=== PATIENT | male | born 1960 | race African-American/Black ===

== ENCOUNTER 2019-11-28 10:11 | Inpatient (IN) | payer OTHER ==
[~2019-11-28] VITALS: Ht 182.9 cm; Wt 117.9 kg
[~2019-11-28 10:11] MED LIST: ACCUPRIL40 MG PO; AMMONIUM LACTA226 GM TOP; CEPHALEXIN 500500 M3 PO; CLEOCIN HCL150 MG PO; HYDROCODONE-AP1 EAC6 PO; NOHOMEMEDICATIONS; PRINIVIL20 MG PO; TRAMADOL 50 MG50 MG PO; TRANDATE 200 M200 M1 PO; XARELTO20 MG PO
[2019-11-28 10:13] VITALS: BP 216/109
[2019-11-28 11:00] LABS: BASOPHILS 0.3 % (0.0-2.0); HEMATOCRIT 41.6 % (42.0-52.0); HEMOGLOBIN 13.4 gm/dL (14.0-18.0); LYMPHOCYTES 24.8 % (24.0-44.0); MCH 27.4 pg (26.0-34.0); MCHC 32.1 g/dL (28.0-37.0); MCV 85.4 fL (80.0-100.0); MONOCYTES 9.4 % (1.0-8.0); PLATELET COUNT 241 thou/uL (150-400); POLYS 64.5 % (36.0-66.0); RBC 4.87 mil/uL (4.50-6.00); RDW 14.7 % (10.5-14.5); WBC 7.8 thou/uL (4.0-11.0)
[2019-11-28 11:08] LABS: CALCIUM 8.6 mg/dL (8.5-10.1); CREATININE 1.2 mg/dL (0.7-1.3); POTASSIUM 3.8 mmol/L (3.5-5.1)
[2019-11-28 11:14] LABS: ALBUMIN 3.5 g/dL (3.4-5.0); TOTAL BILIRUBIN 0.5 mg/dL (0.2-1.0); TOTAL PROTEIN 8.6 g/dL (6.4-8.2)
[2019-11-28 13:25] LABS: URINE BILIRUBIN NEGATIVE (Negative); URINE BLOOD NEGATIVE (Negative); URINE CLARITY CLEAR; URINE COLOR YELLOW; URINE GLUCOSE-RANDOM* NEGATIVE (Negative); URINE KETONES NEGATIVE (Negative); URINE LEUKOCYTES-REFLEX NEGATIVE (Negative); URINE NITRITE-REFLEX NEGATIVE (Negative); URINE PROTEIN (DIPSTICK) NEGATIVE (Negative); URINE SPECIFIC GRAVITY 1.015 (1.005-1.035); URINE UROBILINOGEN 0.2 E.U./dl (0.2-1.0)
[2019-11-28 15:06] VITALS: BP 189/102
[2019-11-28 15:45] VITALS: BP 178/95
[2019-11-28 17:30] VITALS: BP 183/81
--- NOTE | 2019-11-28 19:09 | NUR ---
Pt admitted to floor per cart at 1600. Admission hx,assessment and care plan completed.home med sent to pharmacy.Blood sugar was 110.No insulin needed. Admission nurse to take wound picture later this shift.Dinner given. No verbal c/o.Will continue to monitor.
--- NOTE | 2019-11-28 19:59 | NUR ---
WOUND CARE PICTURES DONE, WOUND CARE DONE TO BILATERAL LEGS. C/O MILD PAIN WITH WOUND CARE, MODERATE AMT. OF LIGHT BROWN DRAINAGE, FOUL SMELLING. DOCUMENTED PERSONAL BELONGINGS. SEPSIS SCREENING DONE. WILL REPORT TO SHENG/ROZINA.
[2019-11-28 23:29] VITALS: BP 138/74
--- NOTE | 2019-11-29 03:58 | NUR ---
ASSUMED PT CARE AROUND 1929. IV REPLACED TO LFA PER PT REQUEST . VSS. NO S/S ACUTE DISTRESS NOTED OR REPORTED AT THIS TIME. WILL CONT TO MONITOR FOR ANY CHANGES IN CONDITION.
[2019-11-29 05:51] VITALS: BP 133/76
[2019-11-29 08:16] VITALS: BP 143/82
--- NOTE | 2019-11-29 14:27 | NUR ---
WOUND CONSULT; ASSESSMENT COMPLETED PRIOR TO ORDERED DRESSING CHANGE. CLEANSED BILATERAL LE'S WITH HIBICLENS DILUTED IN WATER. THOUROUGHLY WASHED LE'S. REMOVED COPIOUS SCALLY/CRUSTED SKIN. THE PATIENT NEEDS PODIATRY. THE PATIENT TOLERATED WELL. DISCUSSED WITH ROZINA
[2019-11-29 16:21] VITALS: BP 184/92
--- NOTE | 2019-11-29 16:53 | NUR ---
PT IS AOX4, ELEVATED BP THIS AFTERNOON 185/92, 62 HR. GAVE PRN BP MEDICATION. PT RECEIVED WOUND CARE FOR BLE BY WOUND CARE NURSE. PT SHOWS NO SIGNS OF DISTRESS. IV PATENT IN R FA, ANTIBIOTIC THERAPY COMPLETED. CALL LIGHT IN REACH. WILL CONTINUE TO MONITOR.
[2019-11-29 20:10] VITALS: BP 161/77
--- NOTE | 2019-11-30 06:39 | NUR ---
Assumed pt care at 1900. Pt's A/OX4,VSS. Denies pain on assessment though grimaces when repositioning self in bed. Continent of B&B,voiding per urinal at night. Pt hasn't gotten OOB this shift. BLE dsgs C/D/I. IV patent on RFA infusing Abts w/o any problems. Fall precautions in place, calls approp for help. Resting quietly w/o any distress,will continue to monitor pt.
[2019-11-30 09:10] VITALS: BP 179/101
[2019-11-30 10:14] VITALS: BP 172/78
--- NOTE | 2019-11-30 12:26 | HC ---
[facility] [place] [address] CONSULTATION Name: ALF YUAN Room #: 461- ADM IN M.R.#: [id number] Admission: 11/28/19 Attend Phys: Amy Franklin Discharge: Date of : 62 Report #: [id number] THIS REPORT FOR: cc: KEZIA - Verónica family physician/PCP KEZIA - Verónica family physician/PCP Leon Infante MD ~ CC: KEZIA physician/PCP Amy Franklin DATE OF SERVICE: 11/29/2019 WOUND CARE CONSULTATION REQUESTING PHYSICIAN: Dr. Franklin. CHIEF COMPLAINT: Bilateral lower extremity wounds. HISTORY OF PRESENT ILLNESS: This is a 59-year-old black male who states he has had chronic lower extremity edema and recurrent wounds for several months. The patient states he normally was getting care at [facility]; however, has not seen a wound care physician for several months. The patient does complain of mild pain associated with the swelling and superficial ulcerations. The patient was admitted through the Emergency Department yesterday evening for bilateral lower extremity cellulitis. We have been asked to follow the patient for the swelling and superficial wounds. The patient denies any other wounds besides what is on his legs. The patient himself is somewhat of a poor historian and appears to be extremely noncompliant. The patient also was noted in the Emergency Department to have uncontrolled hypertension. The patient denies chest pain, numbness, tingling and weakness in arms or legs. PAST MEDICAL HISTORY: Significant for hypertension, venous stasis with superficial ulcerations and stasis dermatitis and edema, diabetes, previous history of DVT with pulmonary embolus. CURRENT MEDICATIONS: Include labetalol, quinapril. DRUG ALLERGIES: None. SOCIAL HISTORY: The patient denies tobacco or alcohol use. FAMILY HISTORY: Not pertinent to current medical condition. REVIEW OF SYSTEMS: CONSTITUTIONAL: The patient denies fevers or chills. NEUROLOGIC: The patient denies associated numbness, tingling or weakness in arms or legs. Denies headache. [facility] [address] [place] [address] CONSULTATION Name: ALF YUAN Room #: 461-[facility] IN .R.#: [id number] Admission: 11/28/19 Attend Phys: Amy Franklin Discharge: Date of : 62 Report #: [id number] EYES: No complaints. ENT: No complaints. CARDIAC: The patient has chronic lower extremity edema with stasis dermatitis, but denies chest pain or palpitation. RESPIRATORY: The patient denies shortness of breath, cough or wheezes. GASTROINTESTINAL: The patient denies nausea, vomiting, and abdominal pain. GENITOURINARY: The patient denies urgency or frequency. MUSCULOSKELETAL: No complaints. SKIN: The patient has significant stasis dermatitis, bilateral lower extremities with hyperkeratosis and multiple superficial ulcerations. PHYSICAL EXAMINATION: VITAL SIGNS: Temperature 36.8, pulse 81, respirations 18, BP 179/101. GENERAL: This is an alert and oriented x 3, pleasant black male who has extremely flat affect. HEENT: Normocephalic, atraumatic. Mucous membranes are dry. Pupils are round. Sclerae white. NECK: Supple, nontender, without JVD. LUNGS: Clear. HEART: Regular. ABDOMEN: Soft, nontender. EXTREMITIES: The patient moves all extremities without difficulty. The patient has significant hyperkeratosis of bilateral lower extremities with multiple superficial ulcerations in bilateral lower extremities with increased erythema, warmth and tenderness. There is 3+ edema bilateral lower extremities. Bilateral heels are intact. Extreme hyperkeratosis of bilateral feet with poor hygiene. NEUROLOGIC: Cranial nerves 2-12 grossly intact. Motor and sensory grossly intact. LABORATORY DATA: White count 7.8, hemoglobin 13.4, albumin 3.5. IMPRESSION: 1. Chronic venous stasis dermatitis with multiple superficial venous leg ulcers and underlying cellulitis. 2. Hyperkeratosis of bilateral feet. 3. Hypertension. 4. Diabetes mellitus. 5. Generalized debility. PLAN: At this time, wound care nurse has been asked to come and clean the patient's legs and feet extensively with soap and water to remove the hyperkeratosis. We will start with AmLactin to the bilateral lower extremities daily. We use Kerlix and Rojelio from toes to knee for control of edema. We will cover the extremities after the AmLactin with Xeroform [place] [address] CONSULTATION Name: ALF YUAN Room #: 461-P [facility] IN M.R.#: [id number] Admission: 11/28/19 Attend Phys: Amy Franklin Discharge: Date of : 62 Report #: [id number] continue all other current medications. We will continue to follow the patient. I appreciate ability to consult. <ELECTRONICALLY SIGNED> By: Leon Infante MD 11/30/19 1226 [id number] [id number] Leon Infante MD /nt
--- NOTE | 2019-11-30 12:34 | NUR ---
ASSUMED CARE AT 0700. PT IS ALERT AND ORIENTED. NO COMPLAINTS AT THIS TIME. HIS BP IS HIGH, MEDICATION GIVEN. OTHERWISE VSSA/RA. TOLERATING PO AND VOIDING WITHOUT ISSUE. BLOOD SUGARS MONITORED PIV INFUSING WITHOUT COMPLICATIONS. WOUND RN CHANGED HIS DRESSINGS TODAY. THEY ARE C/D/I. PT/OT WORKING WITH PT. CALL LIGHT IN REACH. WILL CONTINUE TO MONITOR
--- NOTE | 2019-11-30 16:11 | NUR ---
PT ADMITTED RELATED TO BILAT LE CELLULITIS. CM REVIEWED CHART AND SPOKE WITH CARE TEAM. CM CALLED AND SPOKE WITH PT THIS DAY HE IS A&O X4. CM ROLE INTRODUCED. PT INDICATED HE HAD BEEN STAYING WITH A FRIEND THEN HIS AUNT, THEN AT [facility]CUE [facility]ION AT [address] [place]. PT INDICATED HE HAD BEEN TO [place] FOR WOUND CARE IN THE PAST AND HAD A NUMBER FOR A WOUND CARE PERSON THERE THAT HE CALLS OCCASIONALLY FOR ASSISANCE. PT INDICATED HE HAS NO INSURANCE AND NO PCP. PT IS FAMILIAR WITH GOING FOR CARES AT [place] AND IS AWARE OF CLINIC AT [facility]. PT INDICATED IT WOULD BE HELPFUL TO HAVE HIS MEDS VOUCHERED UPON DC. PT WOULD NEED SUPPLIES PROVIDED TO BE ABLE TO ADDRESS WOUNDS HIMSELF UPON DC. PT INDICATED HE ANTICPATES GOING TO RESCUE OR TO HIS FRIENDS HOUSE UPON DC. PT INIDCATED HE TAKES THE BUS AND WOULD BE FINE TO DO SO UPON DC. CM TO PROVIDE [facility] [facility] PACKET FOR ADDITIONAL FOLLOW UP CARE OPTIONS UPON DC AND WORK TO VOUCHER ANY NEEDED MEDICATIONS.
[2019-11-30 16:54] VITALS: BP 169/89
[2019-11-30 20:41] VITALS: BP 154/84
--- NOTE | 2019-12-01 02:57 | NUR ---
PATIENT ALERT AND ORIENTED X4. UP IN CHAIR AT BEGINNING OF SHIFT AND DID NOT RETURN TO THE BED UNTIL APPROX. 0245. IV PATENT FOR IVPB'S. COOPERATIVE WITH CARE. BILATERAL LOWER EXTREMETIES WRAPPED PER WCT AND ARE D/I. PATIENT KEEPS LEGS ELEVATED WHILE IN JOAQUIN CHAIR. BS AT HS WAS 117, INSULIN GIVEN PER S/S. PATIENT HAS FLAT AFFECT MOST OF THE TIME, HOWEVER, HE WILL LAUGH A LITTLE AT THE TV PROGRAMS AND ANSWERS APPROPRIATELY BUT SHORT. MEDICATED X1 FOR PAIN TO LEGS AT TIME OF NOTE. WILL MONITOR.
[2019-12-01 04:16] VITALS: BP 144/86
[2019-12-01 05:55] LABS: ALBUMIN 2.5 g/dL (3.4-5.0); CALCIUM 7.8 mg/dL (8.5-10.1); CREATININE 1.3 mg/dL (0.7-1.3); PHOSPHORUS 3.5 mg/dL (2.5-4.9); POTASSIUM 3.8 mmol/L (3.5-5.1)
[2019-12-01 07:15] VITALS: BP 179/88
[2019-12-01 15:02] VITALS: BP 178/109
[2019-12-01 20:00] VITALS: BP 171/101
[2019-12-01 20:13] VITALS: BP 171/101
--- NOTE | 2019-12-01 20:31 | NUR ---
Assumed pt care this am, wound care and dressing change done. Stayed on the bed for the whole shift, diet and medication are well tolerated, blood sugar checks done insulin givne as per emar. POC followed with no signs or verbalizations of ldistress noted.
[2019-12-01 21:30] VITALS: BP 159/85
[2019-12-02 00:08] VITALS: BP 166/106
[2019-12-02 02:13] VITALS: BP 175/87
--- NOTE | 2019-12-02 03:41 | NUR ---
PATIENT ALERT AND ORIENTED X4, HOWEVER, HAS A FLAT AFFECT AND DOES NOT SPEAK MUCH UNLESS ASKED. BS MONITORED PER ORDER. DRESSINGS DRY AND INTACT. BLOOD PRESSURE ELEVATED AT BEGINNING OF SHIFT 171/101 WITH TEMP OF 99.3 MEDICATED WITH VICODIN PATIENT C/O PAIN. BP 159/85 TEMP 98.5. RECHECKED AT MIDNIGHT BP 166/106. ORDER RECEIVED FOR HYDRALAZINE 10MG IVP PRN EVERY 6 HOURS. BP WAS 175/87 AT 0215. BREATHING NORMAL RANGE. SLEEPING QUIETLY. WILL MONITOR.
[2019-12-02 04:42] VITALS: BP 157/73
[2019-12-02 08:00] VITALS: BP 174/107
[2019-12-02 16:46] VITALS: BP 142/79
--- NOTE | 2019-12-02 19:09 | NUR ---
Assumed pt care this am, wound care and dressing change done early in the am with Dr. [place]. VS stable though elevated when pt was moved to the chair and post dressing change. Pt stayed on the recliner for most of the day. POC followed with no signs or verbalizations of distress noted. Blood sugar check done, medications given as per emar. Diet and medications are tolerated. Endorsed to the night nurse.
[2019-12-02 19:37] VITALS: BP 150/79
--- NOTE | 2019-12-03 02:39 | NUR ---
PATIENT ALERT AND ORIENTED X4, VERY QUIET NATURE. DRESSINGS TO LOWER BILATERAL LEGS DRY AND INTACT FROM AM CHANGE. HS BLOOD SUGAR WAS 128 AND 4U WERE GIVEN PER SS. PATIENT WAS IN JOAQUIN CHAIR WITH LEGS ELEVATED AT BEGINNING OF SHIFT AND REMAINS THERE AT TIME OF NOTE NOT WANTING TO GO TO BED. NO C/O PAIN. COOPERATIVE WITH CARE. WILL MONITOR.
[2019-12-03 04:17] VITALS: BP 113/75
--- NOTE | 2019-12-03 06:16 | NUR ---
PATIENTS BP THIS AM 113/75 AT APPROX. 0400.
[2019-12-03 07:23] LABS: ABSOLUTE NEUTROPHILS 5.1 thou/uL (1.4-8.2); BASOPHILS 0.7 % (0.0-2.0); EOSINOPHILS 1.5 % (0.0-3.0); HEMATOCRIT 40.3 % (42.0-52.0); HEMOGLOBIN 13.1 gm/dL (14.0-18.0); LYMPHOCYTES 20.6 % (24.0-44.0); MCH 27.3 pg (26.0-34.0); MCHC 32.5 g/dL (28.0-37.0); PLATELET COUNT 323 thou/uL (150-400); POLYS 67.2 % (36.0-66.0); RDW 14.2 % (10.5-14.5); WBC 7.5 thou/uL (4.0-11.0)
[2019-12-03 07:43] LABS: CALCIUM 9.3 mg/dL (8.5-10.1); MAGNESIUM 2.4 mg/dL (1.8-2.4); PHOSPHORUS 5.4 mg/dL (2.5-4.9); POTASSIUM 4.1 mmol/L (3.5-5.1)
[2019-12-03 07:47] VITALS: BP 113/67
[2019-12-03 07:54] LABS: CREATININE 2.6 mg/dL (0.7-1.3)
[2019-12-03] MEDS ORDERED: CLEOCIN HCL150 MG PO (14:13)
[2019-12-03] MEDS ORDERED: LASIX 40 MG TAB40 M1 PO (14:15)
[2019-12-03] MEDS ORDERED: AMMONIUM LACTA226 GM TOP (14:15)
[2019-12-03] MEDS ORDERED: COZAAR100 MG PO (14:16)
[2019-12-03 16:03] VITALS: BP 113/67
--- NOTE | 2019-12-03 16:08 | NUR ---
ANTICIPATE THAT PT WILL DISCHARGE THIS DAY. PT INDICATED HE PLANS TO GO TO [facility]CUE [facility] ON [facility] AND THAT HE WILL TAKE THE BUS. CM BROUGHT PT'S MEDS TO OUTPATIENT PHARMACY TO BE VOUCHERED BY CM. CM AWAITING AMOUNT. PT WILL NEED TO BE GIVEN SUPPLIES FOR HIS WOUND CARE. PT INDICATED HE HAS A WOUND CARE CAONTACT AT [facility] THAT HE CALLS FOR ASSISTANCE. CM PROVIDED [facility] PACKET FOR FOLLOW UP CARES. CM PUT INFO FOR [employer] IN HIS DISCHARGE PAPERWORK. NO OTHER CM INTERVENTION INDICATED. CASE CLOSED.
[2019-12-03 16:14] VITALS: BP 128/76
--- NOTE | 2019-12-03 18:27 | NUR ---
PT A&OX4. DC ORDERS RECEIVED. IV REMOVED FROM L ARM. DC INSTRUCTIONS, SCRIPTS AND F/U APPOINT REVIEWED BY ANDREA HANDY. PT WILL GO TO HOMELESS ALF OR FRIEND. WILL TAKE TRANSIT BUS TO ALF WOUND SUPPLIES PROVIDED.
--- NOTE | 2019-12-03 19:14 | NUR ---
VARGAS TO JASWINDER. LOWER EXTREMITIES CHANGED AND PICTURES TAKEN.
[2019-12-04 00:07] LABS: GLYCOHEMOGLOBIN (HGB A1C) 6.2 % (4.8-5.6)
== END 2019-12-03 19:01 | DRG 603 ==
LOC: ER 10:11 → EROBS 13:36 → 4W 13:36
PROVIDERS: Emergency Medicine; Internal Medicine; ADMIT Hospitalist; ATTEND Hospitalist
DX: L03.116 Cellulitis of left lower limb (principal); L97.229 Non-pressure chronic ulcer of left calf with unspecified severity; L97.219 Non-pressure chronic ulcer of right calf with unspecified severity; L03.115 Cellulitis of right lower limb; E11.9 Type 2 diabetes mellitus without complications; I87.8 Other specified disorders of veins; I10 Essential (primary) hypertension; L30.9 Dermatitis, unspecified; I16.0 Hypertensive urgency; L85.9 Epidermal thickening, unspecified; R53.81 Other malaise; F17.200 Nicotine dependence, unspecified, uncomplicated; L57.0 Actinic keratosis; I87.2 Venous insufficiency (chronic) (peripheral); E66.9 Obesity, unspecified; Z86.718 Personal history of other venous thrombosis and embolism; Z86.711 Personal history of pulmonary embolism; Z68.35 Body mass index [BMI] 35.0-35.9, adult; Z91.14 Patient's other noncompliance with medication regimen; Z71.6 Tobacco abuse counseling
CPT/HCPCS: 10047

== ENCOUNTER 2020-11-15 15:30 | Inpatient (IN) | payer MEDICAID ==
[~2020-11-15] VITALS: Ht 182.9 cm; Wt 116.1 kg
[~2020-11-15 15:30] MED LIST changes: +COZAAR100 MG PO; +LASIX 40 MG TAB40 M1 PO
[2020-11-15 16:15] VITALS: BP 205/131
[2020-11-15 16:31] LABS: ABSOLUTE NEUTROPHILS 5.1 thou/uL (1.4-8.2); BASOPHILS 0.5 % (0.0-2.0); EOSINOPHILS 1.8 % (0.0-3.0); HEMATOCRIT 39.2 % (42.0-52.0); HEMOGLOBIN 12.8 gm/dL (14.0-18.0); LYMPHOCYTES 19.8 % (24.0-44.0); MCH 27.1 pg (26.0-34.0); MCHC 32.6 g/dL (28.0-37.0); MONOCYTES 11.2 % (1.0-8.0); PLATELET COUNT 382 thou/uL (150-400); POLYS 66.7 % (36.0-66.0); RBC 4.72 mil/uL (4.50-6.00); RDW 13.8 % (10.5-14.5); WBC 7.7 thou/uL (4.0-11.0)
[2020-11-15 16:38] LABS: CALCIUM 9.1 mg/dL (8.5-10.1); CREATININE 1.7 mg/dL (0.7-1.3); POTASSIUM 3.8 mmol/L (3.5-5.1)
[2020-11-15 16:44] LABS: TOTAL BILIRUBIN 0.3 mg/dL (0.2-1.0); TOTAL PROTEIN 8.8 g/dL (6.4-8.2)
[2020-11-15 18:48] VITALS: BP 177/99
[2020-11-15 20:00] VITALS: BP 215/110
[2020-11-16] MEDS ORDERED: IBUPROFEN200 MG PO (00:16)
[2020-11-16 00:32] VITALS: BP 178/65
--- NOTE | 2020-11-16 01:22 | NUR ---
Pt admitted from ED approx 1930 with Cellulitis/HTN. A/Ox4,BP elevated on admission,c/o pain to LLE 5/10 medicated per EMAR with no relief reported. Medicated for HTN with clonidine with no relief;order obtained for Hydralazine and Fentanyl. Pt medicated with some relief reported BP 178/65, pain controlled at this time c/o itching on left lateral side. ST on telemetry. Wound pictures/care done,pt tolorated well. Fall precautions implemented, pt instructed not to get up w/o calling.
[2020-11-16 05:00] VITALS: BP 154/75
[2020-11-16 05:54] LABS: ALBUMIN 2.4 g/dL (3.4-5.0); CALCIUM 8.2 mg/dL (8.5-10.1); CREATININE 1.4 mg/dL (0.7-1.3); PHOSPHORUS 2.2 mg/dL (2.6-4.7); POTASSIUM 3.2 mmol/L (3.5-5.1)
[2020-11-16 08:10] VITALS: BP 153/80
[2020-11-16 17:56] VITALS: BP 170/91
--- NOTE | 2020-11-16 19:00 | NUR ---
PATIENT HAS RESTED IN BED THROUGH THE DAY. HE IS ALERTT ORIENTED X4. WOUND DRESSINGS TO BILAT CHANGED. BOTH LOWER EXTREMITIES HAD FOWL ODOR. PATIENT EDUATED ON WOUND CARE. IV CONT. NO PAIN MEDICATIONS REQUESTED. WILL CONT WITH PLAN OF CARE.
[2020-11-16 19:54] VITALS: BP 135/77
--- NOTE | 2020-11-17 04:47 | NUR ---
patient has ble dressing are c/d/i. fall precaution in place. patient encouraged fluids and snacks d/t blood sugar was 89.pain controlled this shift. patient in bed asleep at this time breathing regular and unlaboured.
[2020-11-17 07:42] VITALS: BP 153/85
[2020-11-17 16:26] VITALS: BP 167/96
--- NOTE | 2020-11-17 18:18 | NUR ---
ASSUMED PT CARE THIS AM. PT IS ALERT & ORIENTED X4. PT HAS IV SITE ON R WRIST RUNNING NS @ 75ML/HR. PT USES URINAL. PT ON TELE MONITOR ON. PT IS ACCUCHECK ACHS. PT BG WAS LOW THIS AFTERNOON. RECHECK AGAIN AND BG WAS 91 AT 1309. NO C/O OF PAIN, NAUSEA AND VOMITING DURING THE SHIFT. CHANGE WOUND DRESSING ON BILATERAL LE THIS AFTERNOON. PT IS ON ROOM AIR. PT ON THE BED WATCHING TV, BED ON THE LOWEST POSITION, SIDE RAILS UP, CALL LIGHT WITHIN REACH. WILL CONTINUE TO MONITOR PT. FOLLOW POC.
[2020-11-17 20:26] VITALS: BP 175/92
--- NOTE | 2020-11-18 03:44 | NUR ---
PAIN CONTROLLED THIS SHIFT. PATIENT BLE DRESSING C/D/I. PATIENT BLOOD SUGAR WAS 62 AT AROUND 2100, SNACKS GIVEN AT AROUND 2200 BLOOD SUGAR WAS >146.FALL PRECAUTION IN PLACE. PATIENT IN BED ASLEEP AT THIS TIME BREATHING REGULAR AND UNLABOURED.
[2020-11-18 08:00] VITALS: BP 174/94
[2020-11-18 08:28] VITALS: BP 184/109
[2020-11-18 10:44] LABS: HEMOGLOBIN 10.8 gm/dL (14.0-18.0); MCH 27.3 pg (26.0-34.0); MCHC 33.7 g/dL (28.0-37.0); MCV 81.1 fL (80.0-100.0); RBC 3.95 mil/uL (4.50-6.00); RDW 13.9 % (10.5-14.5); WBC 6.6 thou/uL (4.0-11.0)
--- NOTE | 2020-11-18 10:45 | NUR ---
RD consult. Admit with chronic cellulitis, bilateral lymphedema. Hx diabetes and BG averaging 62-124, A1C 6%. Pt voices good appetite and likes all high protein food sources. Wts stable past year around 255-260, previously much higher in 2018. Pt would like to have 1 protein drink/day-provide glucerna shake. Can continue regular diet for now. Low nutrition risk
[2020-11-18 10:55] LABS: CALCIUM 8.1 mg/dL (8.5-10.1); CREATININE 1.2 mg/dL (0.7-1.3); MAGNESIUM 1.7 mg/dL (1.8-2.4); POTASSIUM 3.5 mmol/L (3.5-5.1)
--- NOTE | 2020-11-18 14:00 | NUR ---
Case management role intorduced. Patient came in with cellulitis on both lower extermities.Patient lives and rents a room from a friend in a 10 story apartement. Elevator access is avaible, no steps were noted in the appartment. No DME's are used prior to admission, independent of all ADL's. Currently he has no insurance and does not go to any PCP. Patient on disability and receives $800 a month via direct deposit started in January 2020. Not on medicaid, introduced the [employer] and how they help and initiate the application process if patient qualifies. Patient is also agreeable with the having dc medication priced prior to dc for financial capability to continue regiment post dc. Also discussed the support for medications in the event he is not able to obrain due to cost though this will be a one time support and patient needs to follow through with a PCP and cover medication after. Wound care consulted, pt on IV Vanco.
--- NOTE | 2020-11-18 15:42 | NUR ---
Assumed pt care at 7am.Pt in and out of bed with assist.Assessment completed. vss. But bp elevation noted.Meds given as ordered with meals and well tolerated.Dr Joseph and Arelis here,order noted.Pt unable to participate in exercise when therapist came to his room today due to severe left leg pain. [place] tab given with partial relief.Will continue to monitor.
[2020-11-18 16:22] VITALS: BP 184/109
[2020-11-18 20:36] VITALS: BP 179/109
[2020-11-19 00:06] VITALS: BP 143/75
--- NOTE | 2020-11-19 06:30 | NUR ---
ASSUMED CARE OF PT AT SHIFT CHANGE. PT IS AOX3-4 AND LETS NEEDS BE KNOWN. FALL PRECAUTION IN PLACE. PT REPORTED BLE PAIN AND WAS TREATED WITH PRNS. ASSESSMENT CHARTED. DRESSINGS CHANGED PER ORDER. ABX TREATMENT CONTINUED. PT WAS ABLE OT GET COMFORTABLE AND SLEEP PART OF THE SHIFT. VSS AND NO S/S OF ACUTE DISTRESS. WILL CONTINUE TO MONITOR.
[2020-11-19 08:47] VITALS: BP 155/93
--- NOTE | 2020-11-19 10:30 | HC ---
[facility] [address] [place] [address] CONSULTATION Name: AFL YUAN Room #: 458-P [facility] IN M.R.#: [id number] Admission: 11/15/20 Attend Phys: Amy Franklin Discharge: Date of : 62 Report #: [id number] THIS REPORT FOR: cc: KEZIA - No family physician/PCP FAM - No family physician/PCP Leon Infante MD ~ DOC #: [id number] Leon Infante MD DATE OF SERVICE: 11/18/2020 WOUND CARE CONSULTATION REQUESTING PHYSICIAN: DR. Franklin CHIEF COMPLAINT: Chronic venous insufficiency with left lower extremity cellulitis. HISTORY OF PRESENT ILLNESS: This is a 60-year-old black male who presented to the Emergency Department for increasing amount of drainage and pain in his left leg. The patient states the drainage has been getting progressively worse over the past several weeks. The patient states that the pain got so bad that it prompted him to come to the Emergency Department to be evaluated. The patient was admitted for IV antibiotics and cellulitis of the left leg. The patient also complains of chronic hyperkeratosis to bilateral lower extremities. The patient was seen by us in the past, but the patient never had followup in the wound clinic. PAST MEDICAL HISTORY: Significant for chronic lymphedema secondary to venous insufficiency, chronic ulcers bilateral lower extremities, type 2 diabetes, hypertension, previous DVT with a history of a pulmonary embolus. MEDICATIONS: Multiple, reviewed the patient's medication list. DRUG ALLERGIES: None. SOCIAL HISTORY: The patient denies alcohol or tobacco use. FAMILY HISTORY: Not pertinent to current medical condition. REVIEW OF SYSTEMS: CONSTITUTIONAL: The patient denies fever or chills. NEUROLOGIC: The patient complains of overall generalized weakness, but no isolated weakness in arms or legs. EYES: No complaints. ENT: No complaints. CARDIOVASCULAR: The patient has chronic lower extremity edema with no [facility] [address] [place] [address] CONSULTATION Name: ALF YUAN Room #: 458-P [facility] IN [facility].#: [id number] Admission: 11/15/20 Attend Phys: Amy Franklin Discharge: Date of : 62 Report #: [id number] associated chest pain or palpitations. RESPIRATORY: The patient denies shortness of breath, cough, wheezing. GASTROINTESTINAL: The patient denies nausea, vomiting, abdominal pain. GENITOURINARY: The patient denies urgency or frequency. MUSCULOSKELETAL: No complaints. SKIN: The patient has chronic venous leg ulcers, left greater than right, with significant hyperkeratosis bilateral lower extremities. PHYSICAL EXAMINATION: VITAL SIGNS: Temperature 36.9, pulse 73, respirations 18, BP 174/94. GENERAL: This is an Alert and oriented x 3, pleasant black male who is in mild to moderate distress secondary to pain. HEENT: Normocephalic, atraumatic. Mucous membranes are somewhat dry. Pupils are round. Sclerae white. NECK: Supple, without JVD. LUNGS: Diminished breath sounds heard throughout. HEART: Regular. ABDOMEN: Soft, nontender. EXTREMITIES: Evaluation of bilateral lower extremities reveals 3-4+ edema. The right lower extremity has significant hyperkeratosis, but no open ulcers. Distal pulses are faint. Right heel is intact. Evaluation of the left lower extremity reveals increased erythema, warmth and tenderness with a near circumferential ulceration in the pretibial calf region. This is foul smelling with significant amount of necrotic tissue and slough. Distal pulses are 1+. Left heel is intact. NEUROLOGIC: Cranial nerves II through XII grossly intact. Motor and sensory are grossly intact. LABORATORY DATA: White count 6.6, hemoglobin 10.8. Sed rate is 80. C-reactive protein is 30.5. Albumin is 2.4. Ultrasound of left calf reveals cellulitis, but no evidence of any abscess. ASSESSMENT: 1. Chronic venous stasis dermatitis with multiple superficial venous leg ulcers with nearly circumferential left lower extremity with associated cellulitis. 2. Chronic venous stasis dermatitis with hyperkeratosis, right lower extremity and bilateral feet. 3. Hypertension. 4. Diabetes mellitus type 2. 5. Generalized debility. 6. Severe protein-calorie malnutrition with albumin 2.4. PLAN: We will start morphine Silvadene cream to the left lower extremity wound for pain relief as well as to help to heal. Xeroform, ABD, Kerlix tape will be used to keep this dressing in place. Antibiotics have already been ordered. We [address] [address] CONSULTATION Name: ALF YUAN Room #: 458-P [facility] IN M.R.#: [id number] Admission: 11/15/20 Attend Phys: Amy Franklin Discharge: Date of : 62 Report #: [id number] will have the patient elevate his legs as much as possible. We will consult general surgery for sonic debridement of the left lower extremity to assist in healing. We will order arterial Dopplers of bilateral lower extremities. We will start the patient on an AmLactin to the right lower extremity for significant hyperkeratosis. I will make sure we maximize the patient's protein supplementation for continued healing. We will utilize physical and occupational therapy for strengthening. We will continue all other current medications. I appreciate the ability to consult. MD PARUL Bowser/LENY <ELECTRONICALLY SIGNED> By: Leon Infante MD 11/19/20 1030 1630 [id number] Leon Infante MD /moshe
--- NOTE | 2020-11-19 12:14 | NUR ---
PT WAS SEEN BY [facility] AND THEY ARE PLANNING TO DO DEBRIDEMENT ON BL LE TOMORROW TUESDAY. PT WAS SEEN BY [employer] AND DECLINED ASSISTANCE IN COMPLEETING MEDICAID APPLICATION YESTERDAY. THEY WILL FOLLOW UP AND ATTEMPT TO ASSIST. CM FOLLOWING INDICATED WITH DC PLANNING.
--- NOTE | 2020-11-19 13:52 | NUR ---
Received awake on bed. Due medications given as prescibed, able to swallow meds w/o difficulty. On room air. Vital signs stable. On telemetry; no complains and signs of chest pain, crushing sensation and heaviness. Assisted in ADLs. On regular diet- tolerating well; no nausea, no vomiting and no abdominal pain noted; encouraged in drinking supplements. On blood sugar monitoring, taken and recorded accordingly. Continent of bowel and bladder, able to use urinal. With NS at 75cc/hr, infusing well. With bilateral lymphedema on LE- dressing C/D/I. On low airloss mattress, with bilateral prafo boots. For daily dressing change. Complained of pain, due PRN pain meds given as prescribed. To continue monitoring patient. Pt seen by physical therapist, able to sit out on the chair- PRN meds for breakthrough pain given as prescribed. With orders from Dr Dang, for NPO post midnight; consent to be signed- for OR tomorrow.
[2020-11-19 15:15] VITALS: BP 150/90
[2020-11-19 21:00] VITALS: BP 173/99
[2020-11-20] VITALS (13 sets, daily range): BP systolic 130–188; BP diastolic 73–100
--- NOTE | 2020-11-20 05:31 | NUR ---
ASSUMED CARE OF PT AT SHIF CHANGE. PT IS AOX4 AND LETS NEEDS BE KNOWN. FALL PRECAUTION IN PLACE. PT REPORTED SOME LE PAIN. PT REFUSED DRESSING CHANGE THIS SHIFT. ASSESSMENT CHARTED. ABX TREATMENT CONTINUED. PT RAN NSR ON TELE THIS SHIFT. NPO AT [place] FOR PROCEDURE IN THE AM. PT SLEPT PART OF THE SHIFT. VSS AND NO S/S OF ACUTE DISTRESS. WILL CONTINUE TO MONITOR.
--- NOTE | 2020-11-20 14:36 | NUR ---
PT HAD DEBRIDEMENT DONE THIS DAY. CM FOLLOWING REGARDING DC PLANNING.
--- NOTE | 2020-11-20 14:55 | O ---
Formerly [facility] [place] [address] OPERATIVE REPORT Name: ALF YUAN Room #: 458-P [facility] IN M.R.#: [id number] Admission: 11/15/20 Attend Phys: Amy Franklin Discharge: Date of : 62 Report #: [id number] THIS REPORT FOR: cc: FAM - No family physician/PCP FAM - No family physician/PCP Manuel Dang MD [facility] ~ DOC #: [id number] Manuel Dang MD DATE OF SERVICE: 11/20/2020 PREOPERATIVE DIAGNOSIS: Bilateral lower extremity hyperkeratotic lesions with open left lower extremity wounds and necrotic tissue. POSTOPERATIVE DIAGNOSIS: Bilateral lower extremity hyperkeratotic lesions with open left lower extremity wounds and necrotic tissue. PROCEDURE PERFORMED: Excisional debridement of skin, subcutaneous tissue, and muscle/fascia of open necrotic wound to the left lower extremity, ultimately measuring 47.5 x 36.5 cm in dimension, (1733.75 square cm). Preoperative wound measurements were similar to the overall dimensions, did not change. SURGEON: Manuel Dang M.D. MEAT STUFFER: EMILIANO Balbuena. ANESTHESIA: General endotracheal anesthesia. ESTIMATED BLOOD LOSS: 20 mL COMPLICATIONS: None appreciated. SPECIMENS: All debrided tissue. INDICATIONS: The patient is a 60-year-old -[place] male with extremely hyperkeratotic bilateral lower legs with open necrotic wounds to the left lower extremity. The patient has significant complaints of pain to both extremities. However, due to the left lower extremity having open wounds with necrotic tissue throughout, indication was for debridement back to healthy tissue to allow for some semblance of wound healing. DESCRIPTION OF PROCEDURE: After explaining the risks, benefits and alternatives of the procedure with the patient in detail in the preoperative holding area and obtaining consent, the patient was brought to the operating room and placed supine on the operating room table. After conducting a thorough timeout procedure, verifying correct patient and procedure, the patient was given general endotracheal anesthesia. Once adequate anesthesia was obtained, his [address] [address] OPERATIVE REPORT Name: YUANALF MACK Room #: 458-P [facility] IN M.R.#: [id number] Admission: 11/15/20 Attend Phys: Amy Franklin Discharge: Date of : 62 Report #: [id number] left lower leg was prepped and draped circumferentially from toes to groin in standard surgical sterile fashion. The right lower leg did not have open wounds and after thorough consultation with Dr. Arechiga of the Wound Care Service, we elected to leave this leg alone and just redress it topically. Once the appropriate timeout had been performed, the Misonix ultrasonic debridement tool in conjunction with electrocautery was used to debride all nonviable skin, subcutaneous tissue, and muscle/fascia from the circumferential left lower leg down to healthy bleeding tissue throughout. Hemostasis was assured with gentle manual pressure as well as the occasional electrocautery. Once I had taken all of the diseased nonviable tissue off of the left lower leg and hemostasis was assured, the wound was dressed with Adaptic, 4 x 4's fluffs, circumferential Kerlix wrap from toes to groin as well as an Rojelio wrap, completing the procedure. At the end of the procedure, all instrument, needle and sponge counts were correct. The patient tolerated the procedure without incident, was awakened in the operating room and transitioned to the recovery room in stable condition with no apparent complications. MD ZAHIDA Sanchez/SONNY <ELECTRONICALLY SIGNED> By: Manuel Dang MD, FACS 11/20/20 [id number] Manuel Dang MD, FACS /nt
--- NOTE | 2020-11-20 19:28 | NUR ---
Assumed pt care this am, was taken down to OR for I& D of the BLE. Debridment was done for LLE only. Dressing c/d/i. BP elevated, medications given as per emar. Blood sugar checks done. POC followed, no signs or verbalizations of distress noted. endorsed to the night nurse.
--- NOTE | 2020-11-21 03:33 | NUR ---
ASSUMED CARE OF PT AT 1900HRS. PT IS AOX4 AND LETS NEEDS BE KNOWN. FALL PRECAUTION IN PLACE. PT REPORTED SOME LE PAIN AND PRNS PROVIDED. ABX TREATMENT CONTINUED. 2L O2 VIA NC CONTINUED FROM POST OP. ASSESSMENT CHARTED. PT RAN NSR ON TELE.PT WAS ABLE TO GET COMFORTABLE AND SLEEP PART OF THE SHIFT. VSS AND NO S/S OF ACUTE DISTRESS. WILL CONTINUE TO MONITOR.
[2020-11-21 04:21] VITALS: BP 185/121
[2020-11-21 05:57] VITALS: BP 144/81
[2020-11-21 08:10] VITALS: BP 177/85
[2020-11-21 09:06] LABS: HEMATOCRIT 34.7 % (42.0-52.0); HEMOGLOBIN 11.4 gm/dL (14.0-18.0); MCH 26.9 pg (26.0-34.0); MCHC 32.7 g/dL (28.0-37.0); MCV 82.4 fL (80.0-100.0); RBC 4.21 mil/uL (4.50-6.00); RDW 13.9 % (10.5-14.5); WBC 10.5 thou/uL (4.0-11.0)
[2020-11-21 09:25] LABS: CALCIUM 8.9 mg/dL (8.5-10.1); CREATININE 1.2 mg/dL (0.7-1.3); MAGNESIUM 1.9 mg/dL (1.8-2.4); POTASSIUM 3.7 mmol/L (3.5-5.1)
--- NOTE | 2020-11-21 14:54 | NUR ---
PT IS POD#1 FROM DEBRIDMENT OF LE. PT IS ON IV VANC. PT REFUSED PT THIS DAY HE HAD JUST HAD DRESSINGS CHANGED AND WAS IN TOO MUCH PAIN. [employer] ASSISTED PT WITH [place]BMITTING [place] MEDICAID APPLICAITON YESTERDAY. IT IS ANTICIPATED THAT PT WILL LIKELY BE HERE OVER THE WEEKEND. DEPENDING ON HOW PT PROGRESSES WITH MOBILITY PT MAY NEED JAZMIN STAY ON 5N PRIOR TO DISHCARGE. CM SPOKE WITH PHYSICIAN AND 5N LIASION. CM FOLLOWING TO ASSIST WITH ANY DC NEEDS.
[2020-11-21 15:59] VITALS: BP 180/82
--- NOTE | 2020-11-21 20:22 | NUR ---
Assumed pt care this am, refused hydralazine stating this made him feel worse. Wound care came and did the initial dressing post op, pains was managed with medications. Blood sugar monitored, pt dips in the pm no insulin or oral medications were given. POC followed, endorsed to the night nurse.
[2020-11-21 22:12] VITALS: BP 150/87
--- NOTE | 2020-11-22 05:18 | NUR ---
Pt. rested quietly at intervals during the night when checked on during frequent rounds. Po pain medication given for c/o generalized pain (see emar) with some relief noted. Dressings to bilateral lower legs are dry and intact. Bed alarm is on.
[2020-11-22 07:34] VITALS: BP 162/75
[2020-11-22 15:45] VITALS: BP 132/71
--- NOTE | 2020-11-22 18:19 | NUR ---
ASSUMED CARE OF PATIENT AT SHIFT CHANGE. ASSESSMENT CHARTED. MEDS ADMINSTERED PER EMAR. VSS. PATIENT IS A&OX4 AND MAKES NEEDS KNOWN; VOICES CONSTANT PAIN ON L LEG AT 5/10. PRN NORCO ADMINISTERED. PATIENT WORKED WITH OT THIS DAY AND DID WELL; SITTING UP TO SIDE OF BED FOR MEALS; SBA. PATIENT FSBS FOR LUNCH WAS 64. JUICE GIVEN AND PROVIDER NOTIFIED; STABLE AFTERWARDS. WOUND CARE COMPLETE THIS DAY. PATIENT VOICED 10/10 PAIN ON L LEG DURING TREATMENT. ABX INFUSING ON R HAND; L HAND A BIT IRRITATED. USES URINAL AND CALLS NEEDED. FALL PRECAUTIONS IN PLACE. WILL CONTINUE TO MONITOR ENDORSE TO NOC RN
[2020-11-22 19:47] VITALS: BP 149/85
[2020-11-23 07:44] VITALS: BP 151/85
--- NOTE | 2020-11-23 07:57 | NUR ---
Pt. rested quietly at intervals during the night when checked on during frequent rounds. Po pain med given for leg pain (see emar) with some relief noted. Dressings to bilateral legs are intact. Pt. refused treatment to leg leg. Pt. voiced I just had it done (see emar). Bed alarm is on.
[2020-11-23 17:19] VITALS: BP 156/82
[2020-11-23 19:33] VITALS: BP 169/81
[2020-11-23 22:27] VITALS: BP 169/81
--- NOTE | 2020-11-24 01:52 | NUR ---
UPON SHIFT ASSESSMENT, PT SLEEP INTERRUPTED. PT AOX4, LETHARGIC WITH INTERMITTENT FORGETFULNESS. PT REPORTS 1/10 PAIN IN LLE. PT HAS PRN PO NORCO Q4HR, PRN PO APAP Q4HR, AND PRN IV FENTANYL Q6HR AVAILABLE. PT DENIES SOB WHILE ON ROOM AIR. PT TOLERATING PO INTAKE OF FLUIDS AND REGULAR DIET WITHOUT ISSUE. PT WITHOUT NAUSEA OR EMESIS. PT RESTING IN BED THROUGHOUT SHIFT, FREQUENT REPOSITIONING ENCOURAGED WHILE IN BED, PT NOTED TO SHIFT INDEPENDENTLY. SENSATION INTACT, CAPILLARY REFILL LESS THAN 3SEC, UNABLE TO ASSESS PEDAL PULSES, BUE PERIPHERAL PULSES PALPABLE. PT REFUSING HS DRESSING CHANGES. DRESSINGS TO BLE CLEAN, DRY, AND INTACT. PT ENCOURAGED TO NOTIFY STAFF FOR ALL NEEDS, CALL LIGHT WITHIN REACH, BED ALARM ON, BED LOCKED IN LOWEST POSITION, FREQUENT MONITORING WILL CONTINUE.
--- NOTE | 2020-11-24 11:32 | NUR ---
WOUND CARE F/U; ROUNDING WITH CUBA MARTIN. THE RIGHT LE HAS NO WOUND. WE ARE USING AMLACTIN LOTION AND A MULTI LAYERED COMPRESSING WRAP WITH AMLACTIN LOTION. NO S/S OF INFECTION WITH HEALTHY INTACT SKIN. THE LEFT LE WAS DIBRIDED WITH MYSONICS AND HAS BEEFY RED TISSUE AND NO S/S OF INFECTION. THE EXTREMITY IMPROVES WITH EACH DRESSING CHANGE. THE EXTREMITY IS CABLE STRANDER. RECOMMENDATIONS; CONTINUE CURRENT TREATMENT. RN PRESENT.
[2020-11-24 11:38] VITALS: BP 178/88
--- NOTE | 2020-11-24 14:04 | NUR ---
ASSUMED CARE OF PATIENT 11/23/20 AT SHIFT CHANGE. ASSESSMENT CHARTED. MEDS ADMINSTERED PER EMAR. VSS. PATIENT A&OX4 MAKES NEEDS KNOWN. WOUND CARE COMPLETE THIS DAY. PATIENT VOICED EXTREME PAIN YUKI DURING WOUND CARE. USING URINAL; NO FURTHER ISSUES. FREQUENT MONITORING; ENDORSED TO NOC. RN
[2020-11-24 14:08] VITALS: BP 178/88
--- NOTE | 2020-11-24 15:26 | NUR ---
ASSUMED CARE OF PATIENT AT SHIFT CHANGE. ASSESSMENT CHARTED. MEDICATIONS ADMINISTERED PER EMAR. VSS. PATIENT IS ALERT AND ORIENTED AND VOICES NEEDS. PATIENT VOICES CONSTANT PAIN ON L LEG, EXACERBATED DURING WOUND CARE. REPORTS PASSED TO OTHER NURSES TO MEDICATE PRIOR TO WOUND CARE DUE TO EXTREME PAIN. WOUND CARE TEAM ROUNDED ON PATIENT AND CHANGED HIS DRESSINGS THIS AM. THEY REMIAN C/D/I. PRN NORCO ADMINISTERED TO RELIEVE PAIN. PATIENT WORKED W OT BUT REFUSED PT THIS DAY. PATIENT HAS BEEN COMMUNICATING UNDERSTANDING IN REGARDS TO HOW HE WILL BE DOING HIS WOUND CARE WHEN HE RETURNS HOME. EXTRA WOUND CARE SUPPLIES GIVEN TO PATIENT. PROVIDER SPOKE TO PATIENT ABOUT WORKING WITH PT TO BE ABLE TO DISCHARGE AND PLAN IS TO DISCHARGE TOMORROW. CM IS FOLLOWING AND WILL SET UP TRANSPORTATION TO PATIENTS APT. NEW IV ON L AC INFUSING ABX W NO ISSUES. PATIENT CONTINUES TO TOLERATE PO INTAKE WELL. USING URINAL; LBM 6/4-DENIES DISCOMFORT. WILL CONTINUE FREQUENT MONITORING ON PATIENT
--- NOTE | 2020-11-24 15:50 | NUR ---
CARE TEAM INDICATED THAT PT IS NEARLY MEDICALLY STABLE TO DC HOME. PT HAD REFUSED PT AND OT THIS DAY. PER THERAPY NOTES PT HASN'T REALLY AMBULATED DURING STAY MOBILITY IS QUESTIONABLE. PT TO WORK WITH PT AND OT TOMORROW SO DC DME NEEDS CAN BE DETERMINED. PHARMACY IS AWARE AND ANTICIPATING DC MEDS TO FILL. CM TO VOUCHER. CM TO PROVIDE [employer] FOR POSSIBLE FOLLOW UP CARES. CM SPOKE WITH PROVIDER [employer] ABOUT POSSIBLE NEED FOR WC FOR HOME USE. ANTICIPATE DC TOMORROW. CM FOLLOWING REGARDING DC PLANNING.
--- NOTE | 2020-11-24 16:45 | NUR ---
This nurse agrees with the [employer] assessmemt.
[2020-11-24 20:34] VITALS: BP 150/93
--- NOTE | 2020-11-25 04:39 | NUR ---
ASSUMED CARE OF PT AT SHIFT CHANGE. PT IS AOX4 AND LETS NEEDS BE KNOWN. FALL PRECAUTION IN PLACE. ASSESSMENT CHARTED. PT REFUSED DRESSING CHANGE THIS SHIFT. PT DENIED NAUSEA OR SOA. PT REPORTED SOME PAIN AND WAS TREATED WITH PRN PAIN MEDS. ASSESSMENT CHARTED. VSS AND NO S/S OF ACUTE DISTRESS. WILL CONTINUE TO MONITOR.
[2020-11-25 08:29] VITALS: BP 195/130
[2020-11-25 09:15] LABS: HEMATOCRIT 38.1 % (42.0-52.0); HEMOGLOBIN 12.2 gm/dL (14.0-18.0); MCH 26.5 pg (26.0-34.0); MCV 83.1 fL (80.0-100.0); RBC 4.59 mil/uL (4.50-6.00); WBC 8.3 thou/uL (4.0-11.0)
[2020-11-25 09:25] LABS: CALCIUM 9.2 mg/dL (8.5-10.1); CREATININE 1.2 mg/dL (0.7-1.3); MAGNESIUM 2.2 mg/dL (1.8-2.4); POTASSIUM 4.5 mmol/L (3.5-5.1)
[2020-11-25] MEDS ORDERED: AMOX TR-K CLV1 EAC4 PO (10:24)
[2020-11-25] MEDS ORDERED: CLONIDINE HCL0.3 M3 PO (10:24)
[2020-11-25] MEDS ORDERED: IBUPROFEN200 MG PO (10:24)
[2020-11-25] MEDS ORDERED: GLYBURIDE 5 MG T5 M1 PO (10:25)
[2020-11-25 10:40] VITALS: BP 156/100
--- NOTE | 2020-11-25 11:32 | NUR ---
Received awake on bed. Due medications given as prescribed, able to swallow meds w/o difficulty. On room air. Vital signs stable. On telemetry; no complains and signs of chest pain, crushing sensation and heaviness. Assisted in ADLs. On carb controlled diet, tolerating well; no nausea, no vomiting and no abdominal pain. On blood sugar monitoring, taken and recorded accordingly. Continent of bowel and bladder; able to have a bowel movement today. With SL at L AC. Bilateral wound dressing in place; C/D/I. For wound dressing change and d/c photo to be taken today. A/W PT evaluation; for possible discharge today- CM informed. Pt very anxious and quite resistive with PT eval; informed him that he will be having pain meds prior to therapy session- Pain meds given as prescribed; able to tolerate therapy today, used wheelchair in the hallway- PT recommendations relayed to CM; a/w further advise re: DME and discharge. Pt seen and examined by Dr Franklin- discharge orders meds. To continue monitoring patient.
--- NOTE | 2020-11-25 15:00 | NUR ---
PT AND OT ASSESSED PT THIS DAY AND INDICATED THAT PT NEEDS A WC FOR USE UPON DC. CM VOUCHERING A WC WITH BL ELEVATING LEG RESTS FOR PT AT COST OF $250.00 THROUGH [employer]. IT WAS DELIVERED TO PT'S ROOM THIS DAY. PT'S DC MEDICATIONS WERE VOUCHERED AT THE DAMON OF $96.72. CM PROVIDED PT WITH [employer]ACK[employer] AND PT WAS GIVEN SOME WC SUPPLIES. CM MET WITH PT AND OFFERED WC VAN TRANSPORT [employer]IA [employer] TO HIS APARTMENT THIS DAY. PT DECLINED INDICATED THAT HE WILL TAKE THE BUS AND THAT HE WILL MANAGE ALL HIS BELONGINGS. NO OTHER CM INTERVENTION INDICATED. CASE CLOSED.
== END 2020-11-25 16:01 | disposition home or self-care (01) | DRG 579 ==
LOC: ER 15:30 → EROBS 19:06 → 4W 19:27
PROVIDERS: Emergency Medicine; Internal Medicine; ADMIT Hospitalist; ATTEND Hospitalist
PROC: 0JDR0ZZ Extraction of Left Foot Subcutaneous Tissue and Fascia, Open Approach (ICD-10-PCS; principal; 2020-11-20)
DX: L03.116 Cellulitis of left lower limb (principal); E43 Unspecified severe protein-calorie malnutrition; N17.9 Acute kidney failure, unspecified; L97.929 Non-pressure chronic ulcer of unspecified part of left lower leg with unspecified severity; L97.919 Non-pressure chronic ulcer of unspecified part of right lower leg with unspecified severity; I10 Essential (primary) hypertension; L03.115 Cellulitis of right lower limb; E11.9 Type 2 diabetes mellitus without complications; E86.0 Dehydration; I89.0 Lymphedema, not elsewhere classified; L85.9 Epidermal thickening, unspecified; I87.2 Venous insufficiency (chronic) (peripheral); R53.81 Other malaise; D63.8 Anemia in other chronic diseases classified elsewhere; S81.802A Unspecified open wound, left lower leg, initial encounter; S81.801A Unspecified open wound, right lower leg, initial encounter; X58.XXXA Exposure to other specified factors, initial encounter; Z86.718 Personal history of other venous thrombosis and embolism; Z86.711 Personal history of pulmonary embolism; Z79.899 Other long term (current) drug therapy; Z68.34 Body mass index [BMI] 34.0-34.9, adult; Y93.89 Activity, other specified; Y92.89 Other specified places as the place of occurrence of the external cause; Y99.8 Other external cause status
CPT/HCPCS: 10040; 10045; 50010; 50101; 50386; 50403; 57119; 57120; 62110; 62900; 70005